=== PATIENT | female | born 1970 | race Caucasian/White ===

== ENCOUNTER 2025-05-01 11:45 | Outpatient (REF) | payer MEDICAID, SELFPAY ==
--- OUTSIDE RECORDS SUMMARY | 2025-05-01 10:45 | XMS_ITS | Encounter Summary ---
Author Organization [employer] Address [address] [place] [address] [address] [place] [address] Care Team Providers Care Ball Mill Mixer Name Role Phone Poli Meyer MD Primary Care Provider [phone] Reason for Referral * Consultation (Routine) - Pending Review Specialty Diagnoses / Procedures Referred By Lorna t Referred To Contact Gastroenterology Diagnoses Encounter for screening for malignant neoplasm of colon Poli Meyer MD [address] [place] [address] Phone: tel: fax: Referral ID Status Reason Start Date Expiration Date Visits Requested Visits Authorized [id number] Pending Review Specialty Services Required 05/01/2025 05/01/2026 1 1 * Imaging (Routine) - Authorized Specialty Diagnoses / Procedures Referred By Lorna t Referred To Contact Radiology Diagnoses Encounter for screening mammogram for malignant neoplasm of breast Procedures BI Mammogram Screening Tomosynthesis Bilateral Poli Meyer MD [address] [place] [address] Phone: tel: fax: [facility] Referral ID Status Reason Start Date Expiration Date V isits Requested Visits Authorized [id number] Authorized 05/01/2025 05/01/2026 1 1 * Consultation (Routine) - Authorized Specialty Diagnoses / Procedures Referred By Lorna t Referred To Contact Midwifery Diagnoses Hx of abnormal cervical Pap smear Poli Meyer MD [address] [place] [address] Phone: tel: fax: Ailyn Umanzor CNM [address] [place] [address] Phone: tel: fax: Referral ID Status Reason Start Date Expiration Date Visits Requested Visits Authorized [id number] Authorized Consult and Treat 05/01/2025 05/01/2026 1 1 Reason for Visit * Reason Comments New patient initial visit Encounter Details Date Type Department Care Team (Late st Contact Info) Description 05/01/2025 10:45 AM EDT Office Visit [facility] [address] [place], [place] [phone] Poli Meyer MD [address] [place] [address] Hypertension, unspecified type (Primary Dx); Chronic pain of right knee; Health care maintenance; Encounter for screening mammogram for malignant neoplasm of breast; Hx of abnormal cervical Pap smear; Screening for cholesterol level; Screening for diabetes mellitus; Encounter for screening for malignant neoplasm of colon; Encounter for immunization Social History Tobacco Use Types Packs/Day Years Used Date Smoking Tobacco: Never Smokeless Tobacco: Never Tobacco Cessation:Counseling Given: Not Answered Alcohol Use Standard Drinks/Week Comments Never 0 (1 standard drink = 0.6 oz pur e alcohol) Housing Stability Answer Date Recorded What is your housing situation today? I have geovanna sloan 05/01/[address] you li ve. Do you have problems with any of the following? None of the above 05/01/2025 Food Insecurity Answer Date Recorded Within the past 12 months, y ou worried that your food would run out before you got money to buy more: Never True 05/01/2025 Within the past 12 months,th e food you bought just didn't last and you didn't have enough money to get more: Never True Transportation Answer Date Recorded In the past 12 months, has l ack of transportation kept you from medical appts, meetings, work or from getting things needed for daily living? No 05/01/2025 Utilities Answer Date Recorded In the past 12 months, has t he electric, gas, oil or water company threatened to shut off services in your home? No 05/01/2025 Internet Access Answer Date Recorded Internet Access Q1 Yes 05/01/2025 Internet Access Q2 Not on file 05/01/2025 Comments Unknown Sex and Gender Information Value Date Recorded Sex Assigned at Female 07/04/2022 10:34 AM EDT Legal Sex Female 10:34 AM EDT Gender Identity Female 04/29/2025 9:05 AM EDT Sexual Orientation Straight 04/29/2025 9: 05 AM EDT documented as of this encounter Last Filed Vital Signs Vital Sign Reading Time Taken Comments Blood Pressure 140/72 05/01/2025 10:56 AM EDT Pulse 72 05/01/2025 10:56 AM EDT Temperature 36.1 C (97 F) 05/01/2025 10:56 AM EDT Respiratory Rate 12 05/01/2025 10:56 AM EDT Oxygen Saturation 97% 05/01/2025 10:56 AM EDT Inhaled Oxygen Concentration - - Weight 75.9 kg (167 lb 6.4 oz) 05/01/2025 10:56 AM EDT Height 160 cm (5' 3 ) 05/01/2025 10:56 AM EDT Body Mass Index 29.65 05/01/2025 10:56 AM EDT documented in this encounter Functional Status * Over the last 2 weeks, how often have you been bothered by any of the following problems? Question Answer Date of Assessment Author Feeling nervous, anxious, or on edge 2 05/01/2025 11:56 AM EDT Anjelica Sharma MA Not being able to stop or control worrying 0 05/01/2025 11:56 AM EDT Anjelica Sharma MA Worrying too much about different things 1 05/01/2025 11:56 AM EDT Anjelica Sharma MA Trouble relaxing 0 05/01/2025 11:56 AM EDT Анна Sharma MA Being so restless that it is hard to sit still 0 05/01/2025 11:56 AM EDT Anjelica Sharma MA Becoming easily annoyed or irritable 0 05/01/2025 11:56 AM EDT Anjelica Sharma MA Feeling afraid as if something awful might happen 0 05/01/2025 11:56 AM EDT Анна Payne MA MINERVA-7 Total Score 3 05/01/2025 11:56 AM EDT Анна Sharma MA documented as of this encounter Progress Notes * Poli Meyer MD - 05/01/2025 10:45 AM EDT Subjective Patient ID: Ana Flores is a 54 y.o. female who presents for New patient initial visit. Patient comes today for the first time to see me. She recently arrived from [place]. She is living with her daughter and she is taking care of her 9-month-old granddaughter, she moved here after from her in [place]. She has a personal history of hypertension. She is currently treated with combination of amlodipine, ARB and HCTZ. She tells me that she was evaluated for palpitations in [place] and had a negative cardiac workup but none of her medical records are available for review. She is not having palpitations anymore. No chest pains or shortness of breath. In terms of health maintenance she is due for a Tdap, mammogram and colonoscopy. She tells me she had an abnormal Pap smear about 2 years ago and that she tested positive for HPV. Review of Systems Constitutional: Negative for chills and fever. HENT: Negative for sore throat. Respiratory: Negative for cough, shortness of breath and wheezing. Cardiovascular: Negative for chest pain, palpitations and leg swelling. Gastrointestinal: Negative for abdominal pain. Objective Vitals: 05/01/25 1056 BP: (!) 140/72 BP Location: Left arm Patient Position: Sitting BP Cuff Size: Adult Pulse: 72 Resp: 12 Temp: 97 ??F (36.1 ??C) TempSrc: Temporal SpO2: 97% Weight: 167 lb 6.4 oz (75.9 kg) Height: 5' 3 (1.6 m) Physical Exam Constitutional: Appearance: Normal appearance. Cardiovascular: Rate and Rhythm: Normal rate and regular rhythm. Heart sounds: No murmur heard. No gallop. Pulmonary: Effort: Pulmonary effort is normal. No respiratory distress. Breath sounds: Normal breath sounds. No wheezing. Musculoskeletal: Right lower leg: No edema. Left lower leg: No edema. Neurological: Mental Status: She is alert. Assessment/Plan Diagnoses and all orders for this visit: Hypertension, unspecified type Comments: Continue current dose of amlodipine and Diovan-HCT. Check fasting blood work listed below. I will have her sign to obtain her previous medical records Orders: - CBC auto differential; Future - Comprehensive Metabolic Panel; Future Chronic pain of right knee Comments: 6-8 months, anterior, no swelling, worse walking and going up the stairs. I recommended acetaminophen for her right knee discomfort. I suspect underlying DJD. We will obtain her previous medical records. She tells me she was prescribed gabapentin when she was living in [place] for the pain. Health care maintenance Comments: In terms of health maintenance we will give her the Tdap today, check fasting blood work, she was referred for mammogram, colonoscopy and gynecology for a Pap smear Encounter for screening mammogram for malignant neoplasm of breast - BI Mammogram Screening Tomosynthesis Bilateral; Future Hx of abnormal cervical Pap smear - Referral to Gynecology (Ailyn); Future Screening for cholesterol level - Lipid Panel, Standard; Future Screening for diabetes mellitus - Comprehensive Metabolic Panel; Future - Hemoglobin A1c; Future Encounter for screening for malignant neoplasm of colon - Referral to Gastroenterology; Future Encounter for immunization - TDAP VACCINE 7 yrs + Other orders - acetaminophen (Tylenol Extra Strength) 500 MG tablet; Take 1 tablet (500 mg) by mouth every 8 (eight) hours if needed for moderate pain. documented in this encounter Plan of Treatment Upcoming Encounters Date Type Department Care Team (Late st Contact Info) Description 07/30/2025 10:30 AM EST Office Visit [facility] [address] [place] [address] Name, MD Poli [address] [place] [address] Scheduled Orders Name Type Priority Associated Diagnoses Orde r Schedule CBC auto differential Lab Routine Hypertension, unspecified type Expected: 05/01/2025 (Approximate), Expires: 05/01/2026 Comprehensive Metabolic Panel Lab Routine Hypertension, unspecified type Screening for diabetes mellitus Expected: 05/01/2025 (Approximate), Expires: 05/01/2026 Lipid Panel, Standard Lab Routine Screening for cholesterol level Expected: 05/01/2025 (Approximate), Expires: 05/01/2026 Hemoglobin A1c Lab Routine Screening for diabetes mellitus Expected: 05/01/2025 (Approximate), Expires: 05/01/2026 BI Mammogram Screening Tomosynthesis Bilateral Imaging Routine Encounter for screening mammogram for malignant neoplasm of breast Expected: 05/01/2025, Expires: 07/01/2026 Scheduled Referrals Name Type Priority Associated Diagnoses Order Schedule Referral to Gynecology (Ailyn) Outpatient Referral Routine Hx of abnormal cervical Pap smear Expected: 05/01/2025 (Approximate), Expires: 05/01/2026 Referral to Gastroenterology Outpatient Referral Routine Encounter for screening for malignant neoplasm of colon Expected: 05/01/2025 (Approximate), Expires: 05/01/2026 documented as of this encounter Visit Diagnoses Diagnosis Hypertension, unspecified type- Primary Chronic pain of right knee Health care maintenance Encounter for screening mammogram for malignant neoplasm of breast Hx of abnormal cervical Pap smear Screening for cholesterol level Screening for diabetes mellitus Encounter for screening for malignant neoplasm of colon Encounter for immunization documented in this encounter Care Teams Ball Mill Mixer Relationship Specialty Start Date End Date Name, MD Poli [address] [place] [id number] PCP - General Internal Medicine 05/01/25 documented as of this encounter
--- OUTSIDE RECORDS SUMMARY | 2025-05-01 12:58 | XMS_ITS | Clinical Summary ---
Author Organization [employer] Address [address] [facility] [address] [place] [address] Care Team Providers Care Steam And Power Superintendent Name Role Phone Poli Meyer MD Primary Care Provider [phone] Allergies No known active allergies Medications valsartan-hydro CHLOROthiazide (Diovan-HCT) 160-12.5 MG tablet TOME 1 TABLETA POR V A ORAL TODOS LOS D 02/06/2025 Active amLODIPine (Norvasc) 10 MG tablet TOME 1 TABLETA POR V A ORAL TODOS LOS D 02/06/2025 Active acetaminophen (Tylenol Extra Strength) 500 MG tablet Take 1 tablet (500 mg) by mouth every 8 (eight) hours if needed for moderate pain. 90 tablet 05/01/2025 05/31/20 25 Active Encounters Date Type Department Care Team Description 05/01/2025 10:45 AM EDT Office Visit [facility] [address] [place] [address] Poli Meyer MD Hypertension, unspecified type (Primary Dx); Chronic pain of right knee; Health care maintenance; Encounter for screening mammogram for malignant neoplasm of breast; Hx of abnormal cervical Pap smear; Screening for cholesterol level; Screening for diabetes mellitus; Encounter for screening for malignant neoplasm of colon; Encounter for immunization 05/01/2025 Travel 04/24/2025 Patient Outreach [facility] [address] [place] [address] Poli Meyer MD Pre-visit Planning ([facility] unable to reach [facility] ) 02/03/2025 Telephone [facility] [address] [place] [address] Poli Meyer MD from Last 3 Months Immunizations Immunization Administration Dates Next Due Influenza injectable quadriv alent IIV4 with preservative 06/28/2018 TD (adult), 2 Lf tetanus tox oid, preservative free, adsorbed 12/10/2017 Tdap 05/01/2025 Family History Medical History Relation Name Comments No Known Problems Brother Migraines Daughter No Known Problems Father No Known Problems Sister Relation Name Status Comments Brother Daughter Father Mother Sister Social History Tobacco Use Types Packs/Day Years [...] Orientation Straight 04/29/2025 9: 05 AM EDT Last Filed Vital Signs Vital Sign Reading [...] Mass Index 29.65 05/01/2025 10:56 AM EDT Plan of Treatment Upcoming Encounters Date Type Department Care Team (Late st Contact Info) Description 07/30/2025 10:30 AM EST Office Visit [facility] [address] [place] [address] Name, MD Poli [address] [place] [address] Health Maintenance Due Date Last Done Comments CT Colonography 1968 Colonoscopy 1968 Colorectal Cancer Screening 1968 Depression Screening 1968 FIT DNA/Cologuard 1968 FIT 1968 FOBT 1968 HIV Screening 1968 Lipid Panel 1968 Sigmoidoscopy 1968 Hepatitis C Screening 1986 Hepatitis B Vaccines (1 of 3 - 19+ 3-dose series) 1987 Pap Smear 1989 Pneumococcal Vaccine: 50+ Years (1 of 1 - PCV) 2018 Zoster Vaccines (1 of 2) 2018 Mammogram 07/12/2020 07/12/2018, 07/02/2018 Cervical Cancer Screening 09/05/2023 HPV/Cotest 09/05/2023 09/05/2018 COVID-19 Vaccine (1 - 2023-2 5 season) 2024 Influenza Vaccine (#1) 2025 06/28/2018 Alcohol/Substance Use Screening 05/01/2026 05/01/2025 Disability Screening 05/01/2026 05/01/2025 SDOH Screening 05/01/2026 05/01/2025 Tobacco Screening 05/01/2026 05/01/2025 DTaP/Tdap/Td Vaccines (2 - T d or Tdap) 05/01/2035 05/01/2025, 12/10/2017 RSV Patients and Patients Aged 60 years or older (1 - 1-dose 75+ series) 2043 HIB Vaccines Aged Out No longer eligi ble based on patient's age to complete this topic HPV Vaccines Aged Out No longer eligi ble based on patient's age to complete this topic Hepatitis A Vaccines Aged Out No long er eligible based on patient's age to complete this topic IPV Vaccines Aged Out No longer eligi ble based on patient's age to complete this topic Meningococcal B Vaccine Aged Out No l onger eligible based on patient's age to complete this topic Meningococcal Vaccine Aged Out No jaylen lore eligible based on patient's age to complete this topic RSV under 20 months Aged Out No longe r eligible based on patient's age to complete this topic Rotavirus Vaccines Aged Out No longer eligible based on patient's age to complete this topic Procedures Procedure Name Priority Date/Time Associated Diagnosis Comments ZZZ HISTORICAL HPV MRNA E6/E7 Routine 09/05/2018 11:02 AM EST MAMMOGRAM GENERIC Routine 07/12/2018 3:3 5 PM EST from Last 3 Months or Most Recently Relevant to Health Maintenance Results * HPV mRNA E6/E7 (09/05/2018 11:02 AM EST) HPV mRNA E6/E7 Not Detected NOT DETECTED [facility] Comment: This test was performed using the APTIMA(R) HPV Assay ([employer] This assay detects E6/E7 viral messenger RNA (mRNA) from 14 high-risk HPV types (16,18,31,33,35,39,45,51, 52,56,58,59,66,68). For additional information please refer to: http://education.Polar Rose/faq/QCU451d9 (This link is being provided for informational/ educational purposes only.) The analytical performance characteristics of this assay have been determined by [employer] [place], [place]. The modifications have not been cleared or approved by the FDA. This assay has been validated pursuant to the CLIA regulations and is used for clinical purposes. Test Performed by [facility], [address] [place] [address] Jose Fried M.D., Ph.D., Director of Laboratories , [facility] [id number] Please note: Effective 05/16/2016, HPV testing will be performed using [employer]'s APTIMA test which targets mRNA. Detecting mRNA instead of DNA, as in older methods, offers significant improvements in specificity. 09/05/2018 11:0 2 AM EST Ailyn Umanzor CNM HISTORICAL/NON ORDERABLE LABS Final Result [facility] [address] * 3D UNILATERAL ADDED VIEWS 1 (07/12/2018 3:35 PM EST) Anatomical Region Laterality Modality Breast Bilateral Mammography 07/12/2018 3:35 PM EST Narrative 07/12/2018 3:37 PM EST Refer to the Notes tab for result details Legacy Procedure: 3D UNILATERAL ADDED VIEWS 1 Procedure Note Provider, MD Yanci - 11/26/2022 Refer to the Notes tab for result details Legacy Procedure: 3D UNILATERAL ADDED VIEWS 1 us Poli Meyer MD IMG BI PROCEDURES Final Result from Last 3 Months or Most Recently Relevant to Health Maintenance [place] [address] [place] [address] C3 Care Teams Steam And Power Superintendent Relationship Specialty Start Date End Date Name, MD Poli [address] [place] [id number] PCP - General Internal Medicine 05/01/25
--- OUTSIDE RECORDS SUMMARY | 2025-05-01 12:58 | XMS_ITS | Encounter Summary ---
Author Organization [employer] Address [address] [facility] [address] [place] [address] Care Team Providers Care Commercial Lines Account Executive Name Role Phone Name, Poli FUNES Primary Care Provider [phone] Encounter Details Date Type Department Care Team (Latest Contact Info) Description 05/01/2025 Travel Social History Tobacco Use Types Packs/Day Years Used Date Smoking Tobacco: Never Smokeless Tobacco: Never Alcohol Use Standard Drinks/Week Comments Never 0 [...] AM EDT documented as of this encounter Functional Status * Over the [...] things 1 05/01/2025 11:56 AM EDT Anjelica Shamra MA Trouble relaxing 0 05/01/2025 11:56 AM OCTAVIAT Анна Sharma MA Being so restless that [...] Sharma MA documented as of this encounter Plan of Treatment Upcoming Encounters Date Type Department Care Team (Late st Contact Info) Description 07/30/2025 10:30 AM EST Office Visit [facility] [address] [place] [address] Name, MD Poli [address] [place] [address] documented as of this encounter Visit Diagnoses Not on filedocumented in this encounter Care Teams Commercial Lines Account Executive Relationship Specialty Start Date End Date NamePoli MD [address] [place] [address] PCP - General Internal Medicine 05/01/25 documented as of this encounter
[2025-05-01 13:17] LABS: MANUAL DIFF FLAG NO
[2025-05-01 13:34] LABS: Hemoglobin A1C 160.4807 umol/L; Total Hemoglobin (HGBA1C) 3689.4925 umol/L
[2025-05-01 13:41] LABS: Alanine Aminotransferase 30 U/L (0-31); Albumin Level 4.6 g/dL (3.5-5.0); Alkaline Phosphatase 99 U/L (39-117); Anion Gap 12 (12-20); Aspartate Amino Transferase 32 U/L (5-31); Blood Urea Nitrogen 12 mg/dL (9-16); Calcium 9.8 mg/dL (8.4-10.2); Carbon Dioxide 29 mmol/L (22-29); Chloride 103 mmol/L (96-108); Cholesterol 238 mg/dL (<200); Estimated Glomerular Filt Rate > 60; HDL Cholesterol 72 mg/dL (>40); Hematocrit 41.6 % (37.0-47.0); Hemoglobin 14.0 g/dl (12.0-16.0); Imm Gran Abs Auto 0.02 X10*3/uL (0.00-0.03); Imm Gran Pct Auto 0.3 % (0.0-0.4); Lymphocytes Absolute Auto 1.9 X10*3/uL (1.2-4.9); Mean Corpuscular HGB Conc 33.7 g/dl (31.0-35.0); Mean Corpuscular Hemoglobin 29.6 pg (27.0-33.0); Mean Corpuscular Volume 87.9 fL (80.0-98.0); NRBC Abs Auto 0.000 X10*3/uL (0.0-0.012); NRBC Pct Auto 0.0 /100WBC (0.0-0.2); Platelet Count 366 X10*3/uL (160-400); Potassium 3.3 mmol/L (3.3-5.1); Red Blood Count 4.73 X10*6/uL (4.20-5.50); Sodium 141 mmol/L (135-145); Total Protein 8.1 g/dL (6.5-8.0); Triglycerides 86 mg/dL (<150); White Blood Count 6.2 X10*3/uL (4.8-10.8)
== END 2025-05-01 11:46 | disposition home or self-care (01) ==
LOC: HO.HHCL 11:45
PROVIDERS: PCP Internal Medicine Geriatric Medicine; Visit Provider Internal Medicine Geriatric Medicine
DX: Z13.220 Encounter for screening for lipoid disorders (principal); Z13.1 Encounter for screening for diabetes mellitus; I10 Essential (primary) hypertension
CPT/HCPCS: 36415; 80053; 80061; 83036; 85025

== ENCOUNTER 2025-07-24 10:45 | Outpatient (REF) | payer MEDICAID, SELFPAY ==
[2025-07-25 08:37] LABS: HIV Num 1 0.07 S/CO (0.00-0.99); ~HepC Num1 0.13 S/CO (0.00-0.79); ~Hepatitis C Antibody Nonreactive (Nonreactive)
== END 2025-07-24 10:46 | disposition home or self-care (01) ==
LOC: HO.HHCL 10:45
PROVIDERS: PCP Internal Medicine Geriatric Medicine; Visit Provider Internal Medicine Geriatric Medicine
DX: Z00.00 Encounter for general adult medical examination without abnormal findings (principal); Z11.4 Encounter for screening for human immunodeficiency virus [HIV]; Z11.59 Encounter for screening for other viral diseases
CPT/HCPCS: 36415; 86803; 87389